=== PATIENT | male | born 1950 | race Two or more races ===

== ENCOUNTER 2024-04-29 06:10 | Day surgery (SDC) | payer OTHER ==
[2024-04-29] MEDS ORDERED: DIPHENHYDRAMINE HCL 50 MG/ML VIAL 1ML IV ONE (09:15)
[2024-04-29] MEDS ORDERED: fentaNYL CITRATE 50 MCG/ML AMPUL IV PUSH ONE (09:15)
[2024-04-29] MEDS ORDERED: MIDAZOLAM HCL 2 MG/2 ML VIAL IV ONE (09:15)
== END 2024-04-29 10:30 | disposition home or self-care (01) ==
LOC: AMB-ENDOS 06:10
PROVIDERS: ATTEND Colon & Rectal Surgery
DX: D12.2 Benign neoplasm of ascending colon (principal); K58.9 Irritable bowel syndrome, unspecified; K63.5 Polyp of colon; Z88.6 Allergy status to analgesic agent; Z12.11 Encounter for screening for malignant neoplasm of colon

== ENCOUNTER 2024-10-06 08:13 | Outpatient (CLI) | payer OTHER | END 2024-10-06 08:32 | disposition home or self-care (01) | LOC: TOM 08:13 | PROVIDERS: ATTEND Colon & Rectal Surgery | DX: Z86.0101 Personal history of adenomatous and serrated colon polyps (principal); Z12.11 Encounter for screening for malignant neoplasm of colon ==